=== PATIENT | male | born 1965 | race Native Hawaiian/Other Pacific Islander ===

== ENCOUNTER 2019-04-03 15:52 | Emergency (ER) | payer OTHER ==
[~2019-04-03] VITALS: Ht 177.8 cm; Wt 113.4 kg
[2019-04-03 16:43] LABS: PLATELET COUNT 215 K/uL (142-355)
[2019-04-03 16:50] LABS: POTASSIUM 3.8 mmol/L (3.6-5.2)
[2019-04-03 18:18] VITALS: BP 126/78; TEMP 98.1
== END 2019-04-03 18:18 | disposition home or self-care (01) ==
LOC: ED 15:52
PROVIDERS: Emergency Medicine
DX: J09.X2 Influenza due to identified novel influenza A virus with other respiratory manifestations (principal)
CPT/HCPCS: 80053; 85027; 87502; 87651; 99283